=== PATIENT | female | born 1950 | race Caucasian/White ===

== ENCOUNTER → 2016-08-17 | Outpatient (CLI) | payer BC ==
[~2016-08-17] MED LIST: ACET-1256 PO; ADVIN10/60 INH; ALBU1AER9 INH; LEVO75TA36 PO; SERT-234 PO; SIMV40TA2 PO; SUMA25TA12 PO
[2016-08-17 17:41] LABS: BASO % 0.3 %; BASO ABS # 0.02 K/uL (0-0.2); COMPLETE YES; EOS % 4.5 %; IG% 0.2 %; LYMPH % 25.4 %; LYMPH ABS # 1.47 K/uL (1.2-3.4); MEAN CORPUSCULAR HEMOGLOBIN 29.3 pg (25-34); MEAN CORPUSCULAR HGB CONC 33.7 g/dl (32-36); MEAN PLATELET VOLUME 9.6 fL (7.4-10.4); MONO % 9.5 %; NEUT % 60.1 %; PLATELET COUNT 243 K/uL (130-400); RED BLOOD COUNT 4.37 M/uL (4.2-5.4); WHITE BLOOD COUNT 5.78 K/uL (4.8-10.8)
[2016-08-17 18:12] LABS: ALT/SGPT 24 U/L (12-78); BLOOD UREA NITROGEN 8 mg/dl (7-18); BUN/CREATININE RATIO 8.4 (10-20); CALCIUM 8.9 mg/dl (8.5-10.1); CARBON DIOXIDE 28 mmol/L (21-32); CHLORIDE 104 mmol/L (98-107); CHOLESTEROL 257 mg/dl (0-200); CREATININE 0.89 mg/dl (0.60-1.20); GLUCOSE 89 mg/dl (70-99); POTASSIUM 3.7 mmol/L (3.5-5.1); SODIUM 140 mmol/L (136-145)
[2016-08-17 18:21] LABS: ALKALINE PHOSPHATASE 84 U/L (45-117); AST/SGOT 24 U/L (15-37); CHOLESTEROL/HDL RATIO 4.8; HDL CHOLESTEROL 53 mg/dl; LDL CHOLESTEROL CALCULATED 186 mg/dl; PHOSPHORUS 3.2 mg/dl (2.5-4.9); THYROID STIMULATING HORMONE 0.513 uIu/ml (0.300-4.500); TRIGLYCERIDES 92 mg/dl (0-150); VERY LOW DENSITY LIPOPROT CALC 18 mg/dl
[2016-08-17 18:23] LABS: TESTOSTERONE,TOTAL 25.7 ng/dl
[2016-08-17 18:24] LABS: PROLACTIN 12.66 ng/mL
[2016-08-18 06:18] LABS: ESTIMATED AVERAGE GLUCOSE 123 mg/dl; HA1C FLAG Normal (Normal)
[2016-08-24 02:19] LABS: C-REACTIVE PROT HIGHSEN 1.2 MG/L
== END | disposition home or self-care (01) ==
LOC: C.LAB1850 16:58
PROVIDERS: ATTEND Family Medicine
DX: R73.09 Other abnormal glucose (principal); E55.9 Vitamin D deficiency, unspecified; D51.9 Vitamin B12 deficiency anemia, unspecified; E28.9 Ovarian dysfunction, unspecified

== ENCOUNTER → 2016-10-12 | Outpatient (CLI) | payer BC ==
--- NOTE | 2016-10-12 16:30 | DIAGNOSTIC IMAGING REPORT ---
THYROID ULTRASOUND HISTORY: GOITER COMPARISON: Thyroid ultrasound 03/04/2015. FINDINGS: Right lobe: 4.6 x 1.4 x 1.4 cm. A 1.4 x 1.0 x 0.7 cm heterogeneous nodule within the lower pole. This is similar to the prior study. Left lobe: 4.5 x 2.5 x 1.0 cm. Stable heterogeneous 2.2 x 1.7 x 1.2 cm nodule. Isthmus: 1 mm thickness. No nodules. IMPRESSION: Stable bilateral thyroid nodules. Electronically signed by: Ronak Leach M.D. 10/12/2016 4:28 PM Dictated Date/Time: 10/12/2016 4:25 PM
== END | disposition home or self-care (01) ==
LOC: C.ULTR 15:51
PROVIDERS: ATTEND Family Medicine
DX: E04.2 Nontoxic multinodular goiter (principal)

== ENCOUNTER → 2016-12-03 | Outpatient (CLI) | payer BC | END | disposition home or self-care (01) | LOC: C.MAMM 09:57 | PROVIDERS: ATTEND Family Medicine | DX: M85.89 Other specified disorders of bone density and structure, multiple sites (principal) ==